=== PATIENT | female | born 1975 | race African-American/Black ===

== ENCOUNTER 2016-07-25 08:56 | Emergency (ER) | payer MEDICAID ==
[~2016-07-25] VITALS: Ht 170.2 cm; Wt 107.5 kg
[2016-07-25 09:03] VITALS: BP 141/93
== END 2016-07-25 10:57 | disposition home or self-care (01) ==
LOC: ER 08:56
DX: G89.29 Other chronic pain (principal); M54.5 Low back pain; Z76.0 Encounter for issue of repeat prescription

== ENCOUNTER 2016-09-17 09:33 | Emergency (ER) | payer MEDICAID ==
[~2016-09-17] VITALS: Ht 170.2 cm; Wt 108.9 kg
[2016-09-17 09:44] VITALS: BP 126/74
== END 2016-09-17 10:32 | disposition home or self-care (01) ==
LOC: ER 09:39
DX: G89.29 Other chronic pain (principal); M54.42 Lumbago with sciatica, left side; M54.41 Lumbago with sciatica, right side; M17.0 Bilateral primary osteoarthritis of knee

== ENCOUNTER 2017-04-25 11:40 | Emergency (ER) | payer MEDICAID ==
[~2017-04-25] VITALS: Ht 175.3 cm; Wt 81.6 kg
[2017-04-25 11:56] VITALS: BP 183/100
[2017-04-25] MEDS ORDERED: ONDANSETRON ODT 4 MG TAB PO ONE (13:45)
[2017-04-25] MEDS ORDERED: METHOCARBAMOL 500 MG TAB PO ONE (13:45)
[2017-04-25] MEDS ORDERED: KETOROLAC TROMETH 60MG/2ML VIAL IM ONE (13:45)
== END 2017-04-25 14:18 | disposition home or self-care (01) ==
LOC: EDBD 11:40 → ER 11:40
DX: S16.1XXA Strain of muscle, fascia and tendon at neck level, initial encounter (principal); S20.212A Contusion of left front wall of thorax, initial encounter; V49.59XA Passenger injured in collision with other motor vehicles in traffic accident, initial encounter; Y93.89 Activity, other specified; Y99.8 Other external cause status; Y92.410 Unspecified street and highway as the place of occurrence of the external cause
CPT/HCPCS: 71020; 72040; 96372; 99284; J1885; Q0162

== ENCOUNTER 2017-08-25 09:30 | Emergency (ER) | payer MEDICAID ==
[~2017-08-25] VITALS: Ht 170.2 cm; Wt 113.4 kg
[2017-08-25 09:59] VITALS: BP 125/83
== END 2017-08-25 10:39 | disposition home or self-care (01) ==
LOC: ER 09:30
DX: M54.5 Low back pain (principal); M25.519 Pain in unspecified shoulder; Z76.0 Encounter for issue of repeat prescription; Z68.39 Body mass index [BMI] 39.0-39.9, adult

== ENCOUNTER 2018-02-19 21:55 | Emergency (ER) | payer MEDICAID | END 2018-02-19 23:06 | disposition left against medical advice (07) | LOC: ER 21:55 | DX: M79.605 Pain in left leg (principal); Z53.21 Procedure and treatment not carried out due to patient leaving prior to being seen by health care provider ==

== ENCOUNTER 2018-02-21 08:43 | Emergency (ER) | payer MEDICAID ==
[~2018-02-21] VITALS: Ht 170.2 cm; Wt 116.1 kg
[2018-02-21 08:53] VITALS: BP 123/87
== END 2018-02-21 09:40 | disposition home or self-care (01) ==
LOC: ER 08:43
DX: S80.862A Insect bite (nonvenomous), left lower leg, initial encounter (principal); W57.XXXA Bitten or stung by nonvenomous insect and other nonvenomous arthropods, initial encounter; Y93.89 Activity, other specified; Y99.8 Other external cause status; Y92.89 Other specified places as the place of occurrence of the external cause